=== PATIENT | male | born 1935 | race African-American/Black ===

== ENCOUNTER → 2021-08-24 | Day surgery (SDC) | payer MEDICARE ==
[~2021-08-24] VITALS: Ht 188 cm; Wt 63.5 kg
[~2021-08-24] MED LIST: MOBIC7.5 MG PO
[2021-08-24 09:20] LABS: HCT 38.5 % (42.0-52.0); MCH 32.7 pg (25.0-31.0); MCHC 33.8 g/dL (32.0-36.0); MPV 10.4 fL (6.0-9.5); RBC 3.97 M/uL (4.70-6.00); RDW 13.6 % (11.5-14.0); WBC 8.3 K/uL (4.0-10.5)
[2021-08-24 09:30] LABS: ALBUMIN 3.4 g/dL (3.4-5.0); BILIRUBIN - TOTAL 1.2 mg/dL (0.2-1.0); BUN/CREAT RATIO (CALC) 10.1 RATIO; CREATININE 0.99 mg/dL (0.67-1.17); GLOBULIN (CALCULATION) 4.5 g/dL; POTASSIUM 4.6 mmol/L (3.5-5.1); TOTAL PROTEIN 7.9 g/dL (6.4-8.2)
== END | disposition home or self-care (01) ==
LOC: FAS 07:54
PROVIDERS: Surgery
DX: K29.50 Unspecified chronic gastritis without bleeding (principal); K22.10 Ulcer of esophagus without bleeding; K22.2 Esophageal obstruction; F17.210 Nicotine dependence, cigarettes, uncomplicated
CPT/HCPCS: 36415; 80053; J2704; J7120

== ENCOUNTER → 2021-09-15 | Day surgery (SDC) | payer MEDICARE ==
[~2021-09-15] VITALS: Ht 188 cm; Wt 57.1 kg
[~2021-09-15] MED LIST changes: +HYDROCODONE-ACE10 ML PO
== END | disposition home or self-care (01) ==
LOC: FAS 10:40
DX: C15.9 Malignant neoplasm of esophagus, unspecified (principal); K22.2 Esophageal obstruction; C78.7 Secondary malignant neoplasm of liver and intrahepatic bile duct; C77.1 Secondary and unspecified malignant neoplasm of intrathoracic lymph nodes; F17.210 Nicotine dependence, cigarettes, uncomplicated; Z20.822 Contact with and (suspected) exposure to COVID-19
CPT/HCPCS: 71045; 76000; C1874; J2704; J7120